=== PATIENT | male | born 1970 | race Hispanic/Latino ===

== ENCOUNTER 2019-11-14 22:34 | Emergency (ER) | payer SELFPAY ==
[2019-11-14] MEDS ORDERED: ACETAMINOPHEN EXTRA STRENGTH 500 MG TABLET ONE (22:45)
[2019-11-14] MEDS ORDERED: AMOXICILLIN 500 MG CAPSULE PO ONE (22:46)
== END 2019-11-14 23:19 | disposition home or self-care (01) ==
LOC: EDH 22:34
DX: K04.7 Periapical abscess without sinus (principal); L03.211 Cellulitis of face; E11.9 Type 2 diabetes mellitus without complications

== ENCOUNTER 2024-09-12 19:03 | Emergency (ER) | payer BC ==
[~2024-09-12] VITALS: Ht 175.3 cm; Wt 97.1 kg
--- NOTE | 2024-09-12 19:38 | ERN ---
General Stated Complaint: SENT BY DR Rivera Seen by MD: 19:07 Source: patient, family History of Present Illness Initial Comments 54-year-old male coming in to be evaluated for cough and shortness of breath. Per patient he was seen by his PCP and sent over for further evaluation. Patient states that these symptoms have been ongoing for one week. Along with the cough and congestion he states that he has been having fever and chills Allergies: Coded Allergies: No Known Drug Allergies (Verified Allergy, Unknown, 11/08/19) ROS Dictation CONSTITUTIONAL: No chills, no fever, no weakness, no diaphoresis, no malaise. HEAD/FACE: No signs of trauma. EENT: No eye pain, no blurred vision, no tearing, no double vision, no ear pain, no ear discharge, no nose pain, no nasal congestion, no throat pain, no throat swelling, no mouth pain. RESPIRATORY: cough, no orthopnea, SOB, no stridor, no wheezing. CARDIOVASCULAR: No chest pain, no edema, no palpitations, no syncope. GASTROINTESTINAL/ABDOMINAL: No abdominal pain, no constipation, no diarrhea, no nausea, no vomiting. GENITOURINARY: No abnormal discharge, no dysuria, no frequent urination, no hematuria. No complaints of pain in the genitals. MUSCULOSKELETAL: No back pain, no gout, no joint pain, no joint swelling, no muscle pain, no muscle stiffness, no neck pain. INTEGUMENTARY: No change in color, no change in hair/nails, no dryness, no lesion, no lumps, no rash. NEUROLOGICAL/PSYCH: No anxiety, not depressed, no emotional problem, no headache, no numbness, no pre-existing deficit, no history of seizures, no tremors, no weakness. HEMATOLOGIC/LYMPHATIC: Not anemic, no history of blood clots, no apparent bleeding, no bruising, glands not swollen. All Systems Negative, Except as Noted. Physical Exam Physical Exam Dictation VITAL SIGNS: Reviewed. GENERAL APPEARANCE: Alert, oriented x3, no acute distress, obese. HEAD AND FACE: Non-traumatic. EYES: PERRL, pink conjunctivas, eyelid no trauma, anterior chamber clear. EARS: Pinnas intact and no signs of trauma or erythema. Ear canals clear and no discharge. TMs no erythema. NOSE: No discharge, no bleeding. OROPHARYNX: Mouth normal, teeth no caries, tongue pink. Pharynx clear, no erythema. Tonsils no exudates, no abscesses noted. Mucous membrane moist. NECK: Supple, non-tender, no thyromegaly, no masses, no JVD, no bruits. BREAST: Deferred. CHEST: No tenderness, no crepitus, no paradoxical movement, no retractions. LUNGS: Clear, well-ventilated, symmetric, rales, no wheezing, rhonchi, stridor, good breath sounds bilaterally. HEART: Regular rate, regular rhythm, no murmur, no gallops. VASCULAR: No peripheral edema. ABDOMEN: Soft, positive bowel sounds, nondistended, no guarding, nontender, no rebound, no masses no hepatomegaly, no splenomegaly, no Glez's sign, no hernias. RECTAL: Deferred. GENITAL: Deferred. NEUROLOGICAL: Normal speech, gross motor function intact, gross sensory function intact. MUSCULOSKELETAL: Neck nontender, full range of motion, back nontender, full range of motion. EXTREMITIES: Nontender, full range of motion. SKIN: Color pink, dry, no turgor, no rash, no lacerations, no abrasions, no contusions. LYMPHATICS: Deferred. Results Laboratory and Microbiology Lab and Micro Result Laboratory Tests Test 09/12/24 20:09 09/12/24 20:25 White Blood Count 10.6 K/uL (4.8-10.8) Red Blood Count 5.66 MIL/uL (4.50-6.20) Hemoglobin 16.0 g/dL (14.0-18.0) Hematocrit 46.8 % (42-54) Mean Corpuscular Volume 82.7 fL (79-99) Mean Corpuscular Hemoglobin 28.3 pg (27.0-33.0) Mean Corpuscular Hemoglobin Concent 34.2 g/dL (32.0-36.0) Red Cell Distribution Width 13.6 % (11.0-15.5) Platelet Count 216 K/uL (130-400) Mean Platelet Volume 9.4 fL (7.5-10.5) Immature Granulocyte % (Auto) 0.5 % (0-1) Neutrophils (%) (Auto) 77.2 % (40.0-77.0) H Lymphocytes (%) (Auto) 5.6 % (21.0-51.0) L Monocytes (%) (Auto) 15.2 % (3.0-13.0) H Eosinophils (%) (Auto) 0.8 % (0.0-8.0) Basophils (%) (Auto) 0.7 % (0.0-5.0) Neutrophils # (Auto) 8.2 K/uL (1.8-7.7) H Lymphocytes # (Auto) 0.6 K/uL (1.0-4.8) L Monocytes # (Auto) 1.6 K/uL (0.1-1.0) H Eosinophils # (Auto) 0.08 K/uL (0.00-0.70) Basophils # (Auto) 0.07 K/uL (0.00-0.20) Absolute Immature Granulocyte (auto 0.05 K/uL (0-1) Nucleated Red Blood Cells 0.0 % (0.0-0.19) White Cell Morphology Comment See comments Sodium Level 133 mmol/L (136-145) L Potassium Level 4.2 mmol/L (3.5-5.1) Chloride Level 98 mmol/L (101-111) L Carbon Dioxide Level 28 mmol/L (21-32) Blood Urea Nitrogen 15 mg/dL (7-18) Creatinine 0.9 mg/dL (0.5-1.3) Glomerular Filtration Rate Calc 101 mL/min (>90) Random Glucose 103 mg/dL (70-105) Lactic Acid Level 2.4 mmol/L (0.8-2.5) Total Calcium 9.1 mg/dL (8.5-10.1) Total Creatine Kinase 97 U/L (21-232) Troponin I High Sensitivity 7 ng/L (4-75) B-Type Natriuretic Peptide 65 pg/mL (0-100) Influenza Type A Antigen Positive For Type A Influenza Type B Antigen Negative For Type B SARS-CoV-2, RNA, NAAT NEGATIVE SARS CoV-2 Group A Streptococcus Rapid negative (NEGATIVE) Labs Reviewed?: Yes EKG/XRAY/US/CT/MRI X-RAY Comment Chest x-ray-NAD [facility] MDM: Differential diagnosis: Cough, congestion, URI, influenza, COVID Patient is a 54-year-old male coming in to be evaluated for cough and congestion. Per patient he was sent by PCP to rule out an ammonia. Laboratory workup negative for acute findings influenza a is only positive findings. Patient will be discharged in stable condition with a diagnosis of influenza a patient will be discharged with Tamiflu and medication for symptomatic relief. ED Course Orders Procedure Category Date Status Time Cbc With Differential LAB 09/12/24 Complete 19:30 Blood Cult LUKE 09/12/24 In Process 19:30 Urinalysis Profile LAB 09/12/24 Logged 19:30 Culture Urine LUKE 09/12/24 Logged 19:30 Creatine Kinase, Total LAB 09/12/24 Complete 19:30 Troponin I High LAB 09/12/24 Complete Sensitivity 19:30 Lactic Acid LAB 09/12/24 Complete 19:30 Basic Metabolic Panel LAB 09/12/24 Complete 19:30 B-Type Natriuretic LAB 09/12/24 Complete Peptide 19:30 Chest 1vw RAD 09/12/24 Taken 19:30 Methylprednisolone PHA 09/12/24 Complete Succ 125mg (Solu-Medr 19:30 Ipratropium/Albuterol PHA 09/12/24 Complete Neb (Duoneb) 19:30 Ceftriaxone 1g Vial PHA 09/12/24 Complete (Rocephine 1g Inj) 19:30 Azithromycin 500mg+Ns PHA 09/12/24 Complete 250ml (Azithromyci 19:30 Arterial Blood Gas + RT 09/12/24 Transmitted 19:33 Acetaminophen 500mg PHA 09/12/24 Complete Tab (Tylenol 500mg T 20:30 Rapid (Group A Strep) LAB 09/12/24 Complete 20:35 Influenza Type A & B, LAB 09/12/24 Complete Rapid 20:35 Covid Rna Naat LAB 09/12/24 Complete 20:35 Current Medications Medications (Trade) Dose Ordered Sig/Gabrielle Route PRN Reason Start Time Stop Time Status Last Admin Dose Admin Acetaminophen (TYLenol 500MG TAB) 1,000 mg ONCE ONCE PO 09/12/24 20:30 09/12/24 20:31 DC 09/12/24 20:36 Albuterol (DUOneb) 2 udvial ONCE ONCE IH 09/12/24 19:30 09/12/24 19:34 DC 09/12/24 20:40 Azithromycin 250 ml @ 250 mls/hr Q24H STAT IVPB 09/12/24 19:30 09/12/24 20:29 DC 09/12/24 20:12 Ceftriaxone Sodium (ROCEphine 1G INJ) 1 gm ONCE ONCE IVPB 09/12/24 19:30 09/12/24 19:34 DC 09/12/24 20:12 Methylprednisolone Sodium Succinate (Solu-medROL 125MG) 125 mg ONCE ONCE IVP 09/12/24 19:30 09/12/24 19:34 DC 09/12/24 20:13 Vital Signs Date Time Temp Pulse Resp B/P (MAP) Pulse Ox O2 Delivery O2 Flow Rate FiO2 09/12/24 21:18 102.0 120 20 148/80 97 Room Air* 0 21 09/12/24 20:40 107 18 09/12/24 20:36 102.0 09/12/24 19:54 102.4 113 20 149/90 98 Room Air DX & DISP Disposition: Discharge Departure Impression: Primary Impression: Influenza A Condition: Stable Scripts Loratadine (Loratadine) 10 Mg Tablet 1 TAB PO DAILY for allergy symptoms for 30 Days, #30 TAB 0 Refills Prov: CHRISTIANNE MUÑOZ MD 09/12/24 Prednisone (Prednisone) 5 Mg Tablet 1 TAB PO DAILY for 7 Days, #7 TAB 0 Refills Prov: CHRISTIANNE MUÑOZ MD 09/12/24 Oseltamivir Phosphate (Tamiflu) 75 Mg Cap 1 CAP PO BID for 5 Days, #10 CAP 0 Refills Prov: CHRISTIANNE MUÑOZ MD 09/12/24 Additional Instructions: FOLLOW-UP WITH PRIMARY CARE PROVIDER IN 1 TO 2 DAYS. TAKE MEDICATIONS DIRECTED HERE IN THE EMERGENCY ROOM. OKAY TO CONTINUE HOME MEDICATIONS UNLESS OTHERWISE DISCUSSED DURING YOUR VISIT IN THE EMERGENCY ROOM TODAY. RETURN TO YOUR NEAREST EMERGENCY ROOM IF SYMPTOMS WORSEN OR IF THERE IS NO IMPROVEMENT. CALL 911 IF YOU NEED IMMEDIATE ASSISTANCE. TAKE TYLENOL [id number] NEEDED AND IF NO CONTRAINDICATIONS ARE PRESENT. INCREASE ORAL HYDRATION. A WOUND CULTURE OR URINE CULTURE WAS ORDERED HERE IN THE EMERGENCY ROOM DEPARTMENT PLEASE FOLLOW-UP WITH PRIMARY CARE PROVIDER AND ADVISE THEM TO GET REPEAT PORTS FROM OUR FACILITY. IF YOU HAD ANY BULL WRAP/SPLINTS THAT WERE APPLIED HERE, PLEASE DO NOT REMOVE THEM UNTIL YOU SEE YOUR PRIMARY CARE OR SPECIALTY. Referrals: Referrals: JOSE SINGH MD (PCP) Time of Disposition: 22:29 CHRISTIANNE MUÑOZ MD Sep 12, 2024 19:38
--- NOTE | 2024-09-12 19:55 | NUR ---
SEPSIS ALERT CALLED OVERHEAD FOR HWD3; PT WITH TEMP OF 102.4 AND PULSE OF 113
[2024-09-12] MEDS: AZITHROMYCIN 500MG+NS 250ML 250 ML IVPB STA (20:12)
[2024-09-12] MEDS: cefTRIAXone 1G VIAL IVPB ONE (20:12)
[2024-09-12] MEDS: Solu-medROL 125MG VIAL IVP ONE (20:13)
--- NOTE | 2024-09-12 20:15 | NUR ---
ASSUMED PT CARE
[2024-09-12 20:22] LABS: BASOPHILS # (AUTO) 0.07 K/uL (0.00-0.20); BASOPHILS % (AUTO) 0.7 % (0.0-5.0); EOSINOPHILS # (AUTO) 0.08 K/uL (0.00-0.70); EOSINOPHILS % (AUTO) 0.8 % (0.0-8.0); HEMATOCRIT 46.8 % (42-54); IMMATURE GRANULOCYTE ABSOLUTE 0.05 K/uL (0-1); LYMPHOCYTES # (AUTO) 0.6 K/uL (1.0-4.8); LYMPHOCYTES % (AUTO) 5.6 % (21.0-51.0); MEAN CORPUSCULAR HEMOGLOBIN 28.3 pg (27.0-33.0); MEAN CORPUSCULAR HGB CONC 34.2 g/dL (32.0-36.0); MEAN CORPUSCULAR VOLUME 82.7 fL (79-99); MONOCYTES # (AUTO) 1.6 K/uL (0.1-1.0); MONOCYTES % (AUTO) 15.2 % (3.0-13.0); NEUTROPHILS # (AUTO) 8.2 K/uL (1.8-7.7); NEUTROPHILS % (AUTO) 77.2 % (40.0-77.0); PLATELET COUNT (AUTO) 216 K/uL (130-400); RED BLOOD CELL COUNT(AUTO) 5.66 MIL/uL (4.50-6.20); RED CELL DISTRIBUTION WIDTH 13.6 % (11.0-15.5); WHITE BLOOD COUNT (AUTO) 10.6 K/uL (4.8-10.8)
[2024-09-12 20:26] LABS: CREATININE 0.9 mg/dL (0.5-1.3); POTASSIUM 4.2 mmol/L (3.5-5.1)
[2024-09-12] MEDS: acetaMINOPHEN 500 MG TABLET PO ONE (20:36)
[2024-09-12 20:40] VITALS: PULSE 107; RESP 18
[2024-09-12] MEDS: IpraTROPium/alBUTERol SULFATE 3 ML SOLUTION IH ONE (20:40)
[2024-09-12 20:46] LABS: B-TYPE NATRIURETIC PEPTIDE 65 pg/mL (0-100)
[2024-09-12 20:52] LABS: RAPID GROUP A STREP negative (NEGATIVE)
[2024-09-12 20:54] LABS: SARS-CoV-2, RNA, NAAT NEGATIVE SARS CoV-2 (NEGATIVE)
[2024-09-12 21:02] LABS: INFLUENZA TYPE B Negative For Type B (NEGATIVE)
[2024-09-12 21:05] LABS: INFLUENZA TYPE A Positive For Type A (NEGATIVE)
[2024-09-12 21:40] VITALS: TEMP 100
[2024-09-12] MEDS ORDERED: LORA10TA7 PO (22:31)
[2024-09-12] MEDS ORDERED: PRED5TAB PO (22:31)
[2024-09-12] MEDS ORDERED: OSEL75 PO (22:31)
[2024-09-12 23:05] VITALS: BP 135/65; PULSE 105; RESP 20; TEMP 100; O2SAT 98
--- NOTE | 2024-09-13 08:26 | HMCIMG ---
CHEST 1VW REASON: cough COMPARISON: None. FINDINGS: Single view of the chest was obtained. Lungs are clear. Heart size is normal. There is no pulmonary vascular congestion. Mediastinum and bony thorax appear unremarkable. IMPRESSION: 1. Normal single view chest x-ray.
== END 2024-09-12 23:06 | disposition home or self-care (01) ==
LOC: EDH 19:03
DX: J10.1 Influenza due to other identified influenza virus with other respiratory manifestations (principal); Z20.822 Contact with and (suspected) exposure to COVID-19
CPT/HCPCS: 99284; 96365; 71045; 87635; 96375; 82550; 84484; 80048; 83880; 85025; 87040 ×2; 87880; 87804 ×2; 83605; 36415; 96368; 94640; J2919; J0696; J0456

== ENCOUNTER 2024-10-05 22:01 | Emergency (ER) | payer BC ==
[~2024-10-05] VITALS: Ht 170.2 cm; Wt 94.8 kg
[~2024-10-05 22:01] MED LIST: LORA10TA7 PO; OSEL75 PO; PRED5TAB PO
--- NOTE | 2024-10-05 22:29 | ERN ---
General Chief Complaint: Shortness of Breath Stated Complaint: SHORTNESS OF BREATH Time Seen by MD: 22:05 History of Present Illness Initial Comments 54-year-old male, 30+ pack year smoking history, diabetes, presents for dyspnea. Patient reports that he was in his normal state of health throughout the day today. He was able to go to work. He took a nap, and upon awakening he says that he could not catch his breath. He was trying to take deep respiration rate but was unable to take a deep respiration. He denies any chest pain. Denies any swelling. Denies any cough or congestion. Denies any recent viral URI type illnesses. He denies any dizziness or syncopal episodes. He reports that he has never felt this before. He reports that he was initially very winded upon awakening, but his symptoms are subsiding. Allergies: Coded Allergies: No Known Drug Allergies (Verified Allergy, Unknown, 11/08/19) Home Meds Active Scripts Prednisone (Prednisone) 20 Mg Tablet, 1 TAB PO BID for 5 Days, #10 TAB 0 Refills Prov:KATHERINE ZAMORANO DO 10/06/24 Albuterol Sulfate (Ventolin Hfa/Proventil Hfa/Proair Hfa) 90 Mcg Puff, 2 PUFF IH Q4HPRN PRN for wheezing for 30 Days, #18 GM 0 Refills Prov:KATHERINE ZAMORANO DO 10/06/24 Loratadine (Loratadine) 10 Mg Tablet, 1 TAB PO DAILY for allergy symptoms for 30 Days, #30 TAB 0 Refills Prov:CHRISTIANNE MUÑOZ MD 09/12/24 Prednisone (Prednisone) 5 Mg Tablet, 1 TAB PO DAILY for 7 Days, #7 TAB 0 Refills Prov:CHRISTIANNE MUÑOZ MD 09/12/24 Oseltamivir Phosphate (Tamiflu) 75 Mg Cap, 1 CAP PO BID for 5 Days, #10 CAP 0 Refills Prov:CHRISTIANNE MUÑOZ MD 09/12/24 Past Medical History Past Medical History: Diabetes-Type II, Other Medical History Other: SLEEP APNEA Past Surgical History: None ROS Dictation CONSTITUTIONAL: No chills, no fever, no weakness, no diaphoresis, no malaise. HEAD/FACE: No signs of trauma. EENT: No eye pain, no blurred vision, no tearing, no double vision, no ear pain, no ear discharge, no nose pain, no nasal congestion, no throat pain, no throat swelling, no mouth pain. RESPIRATORY: Dyspnea CARDIOVASCULAR: No chest pain, no edema, no palpitations, no syncope. GASTROINTESTINAL/ABDOMINAL: No abdominal pain, no constipation, no diarrhea, n o nausea, no vomiting. GENITOURINARY: No abnormal discharge, no dysuria, no frequent urination, no hematuria. No complaints of pain in the genitals. MUSCULOSKELETAL: No back pain, no gout, no joint pain, no joint swelling, no muscle pain, no muscle stiffness, no neck pain. INTEGUMENTARY: No change in color, no change in hair/nails, no dryness, no lesion, no lumps, no rash. NEUROLOGICAL/PSYCH: No anxiety, not depressed, no emotional problem, no headache, no numbness, no pre-existing deficit, no history of seizures, no tremors, no weakness. HEMATOLOGIC/LYMPHATIC: Not anemic, no history of blood clots, no apparent bleeding, no bruising, glands not swollen. All Systems Negative, Except as Noted. Physical Exam Physical Exam Dictation VITAL SIGNS: Reviewed. GENERAL APPEARANCE: Alert, oriented x3, no acute distress, obese. HEAD AND FACE: Non-traumatic. EYES: PERRL, pink conjunctivas, eyelid no trauma, anterior chamber clear. EARS: Pinnas intact and no signs of trauma or erythema. Ear canals clear and no discharge. TMs no erythema. NOSE: No discharge, no bleeding. OROPHARYNX: Mouth normal, teeth no caries, tongue pink. Pharynx clear, no erythema. Tonsils no exudates, no abscesses noted. Mucous membrane moist. NECK: Supple, non-tender, no thyromegaly, no masses, no JVD, no bruits. BREAST: Deferred. CHEST: No tenderness, no crepitus, no paradoxical movement, no retractions. LUNGS: Clear, well-ventilated, symmetric, no rales, no wheezing, no rhonchi, no stridor, good breath sounds bilaterally. HEART: Regular rate, regular rhythm, no murmur, no gallops. VASCULAR: No peripheral edema. ABDOMEN: Soft, positive bowel sounds, nondistended, no guarding, nontender, no rebound, no masses no hepatomegaly, no splenomegaly, no Glez's sign, no hernias. RECTAL: Deferred. GENITAL: Deferred. NEUROLOGICAL: Normal speech, gross motor function intact, gross sensory function intact. MUSCULOSKELETAL: Neck nontender, full range of motion, back nontender, full range of motion. EXTREMITIES: Nontender, full range of motion. SKIN: Color pink, dry, no turgor, no rash, no lacerations, no abrasions, no contusions. LYMPHATICS: Deferred. Results Laboratory and Microbiology Lab and Micro Result Laboratory Tests Test 10/05/24 22:13 10/05/24 22:41 10/05/24 23:31 10/06/24 00:43 Influenza Type A Antigen Negative For Type A Influenza Type B Antigen Negative For Type B SARS-CoV-2 Antigen (Rapid) PRESUMPTIVE NEGATIVE White Blood Count 11.1 K/uL (4.8-10.8) H Red Blood Count 5.48 MIL/uL (4.50-6.20) Hemoglobin 15.3 g/dL (14.0-18.0) Hematocrit 45.5 % (42-54) Mean Corpuscular Volume 83.0 fL (79-99) Mean Corpuscular Hemoglobin 27.9 pg (27.0-33.0) Mean Corpuscular Hemoglobin Concent 33.6 g/dL (32.0-36.0) Red Cell Distribution Width 13.8 % (11.0-15.5) Platelet Count 259 K/uL (130-400) Mean Platelet Volume 9.8 fL (7.5-10.5) Immature Granulocyte % (Auto) 0.3 % (0-1) Neutrophils (%) (Auto) 60.0 % (40.0-77.0) Lymphocytes (%) (Auto) 29.3 % (21.0-51.0) Monocytes (%) (Auto) 7.5 % (3.0-13.0) Eosinophils (%) (Auto) 2.4 % (0.0-8.0) Basophils (%) (Auto) 0.5 % (0.0-5.0) Neutrophils # (Auto) 6.6 K/uL (1.8-7.7) Lymphocytes # (Auto) 3.2 K/uL (1.0-4.8) Monocytes # (Auto) 0.8 K/uL (0.1-1.0) Eosinophils # (Auto) 0.27 K/uL (0.00-0.70) Basophils # (Auto) 0.06 K/uL (0.00-0.20) Absolute Immature Granulocyte (auto 0.03 K/uL (0-1) Nucleated Red Blood Cells 0.0 % (0.0-0.19) D-Dimer Quantitative (PE/DVT) 503 ng/mL (0-500) *H Sodium Level 138 mmol/L (136-145) Potassium Level 4.3 mmol/L (3.5-5.1) Chloride Level 102 mmol/L (101-111) Carbon Dioxide Level 29 mmol/L (21-32) Blood Urea Nitrogen 14 mg/dL (7-18) Creatinine 0.8 mg/dL (0.5-1.3) Glomerular Filtration Rate Calc 105 mL/min (>90) Random Glucose 114 mg/dL (70-105) H Total Calcium 8.7 mg/dL (8.5-10.1) Total Creatine Kinase 100 U/L (21-232) Troponin I High Sensitivity 5.7 ng/L (4-75) 7 ng/L (4-75) B-Type Natriuretic Peptide 9 pg/mL (0-100) Blood Gas Specimen Type Arterial Arterial Blood pH 7.406 (7.350-7.450) Arterial Blood Partial Pressure CO2 41 mmHg (35-48) Arterial Blood Partial Pressure O2 62.1 mmHg (83.0-108.0) L Arterial Blood HCO3 25.2 mmol/L (21.0-28.0) Arterial Blood Oxygen Saturation 92.0 % (94.0-98.0) L Arterial Blood Base Excess 0.5 mmol/L (-2.0-3.0) Blood Gas Temperature 37.0 CELSIUS (35.5-37.0) Blood Gas Vent Mode ROOMAIR (ROOM AIR) FiO2 21.0 % Blood Gas Specimen Comment RB EVON MDM CC: Dyspnea upon awakening just prior to arrival Historian: Patient Comorbidities: Obesity, 30+ pack year smoking history, diabetes, sleep apnea Limitations by social determinants of health: None Differential diagnosis: ACS, PE, emphysema /COPD, asthma, pneumonia, other. EKG (independently ordered and interpreted by me): Normal sinus rhythm, tachycardia, rate of 102, normal axis, good R-wave progression, intervals are stable. Labs (independently interpreted by me): CBC normal, BMP stable, CK normal, troponin x 2 normal, BNP normal. D-dimer elevated. ABG (interpreted by me): PaO2 62, otherwise stable. CTA chest PE protocol (independently interpreted by me): normal lung kennedy, no obvious PE. CXR (independently interpreted by me): no cardiomegally, no effusions, no focal infiltrates. Treatment in ED: solumedrol IV, nebulized atrovent & albuterol The patient has a stable oxygen saturation in the entire time in the ER. While he fell asleep, he was getting in the ABG, Which I think lead to the hypoxia. He likely has sleep apnea. While awake the patient always had an oxygen saturation over 95% while on room air. after the nebulized treatments, I re- evaluated the patient and he has a little bit more wheezing than prior. I suspect he was very clamped down initially. He was symptoms are more consistent with COPD/emphysema, he has never been diagnosed with this but this is likely what is causing your symptoms based on his extensive smoking history. I did consider admission for the patient, but since the patient was stable oxygen saturation no respiratory distress and he feels much improved after nebulizer treatments, we will discharge with a prescription for albuterol inhaler, a course of steroids, and follow up with the PCP. He reports that he was very good follow up with his PCP and he prefers to be worked up as an outpatient. ED Course Orders Procedure Category Date Status Time Arterial Blood Gas RT 10/05/24 Transmitted 22:06 Cbc With Differential LAB 10/05/24 Complete 22:06 B-Type Natriuretic LAB 10/05/24 Complete Peptide 22:06 Cardiac Panel LAB 10/05/24 Complete 22:06 Chest 1vw RAD 10/05/24 Taken 22:06 12 Lead Ekg Tracing- EKG 10/05/24 Logged Technical 22:06 Basic Metabolic Panel LAB 10/05/24 Complete 22:06 Covid19 (Sars Antigen LAB 10/05/24 Complete Rapid) 22:06 Influenza Type A & B, LAB 10/05/24 Complete Rapid 22:06 D-Dimer LAB 10/05/24 Complete 22:06 Albuterol 0.083% PHA 10/05/24 Complete 2.5mg/3ml (Proventil 22:30 Ipratropium 0.5 PHA 10/05/24 Complete Mg/2.5 Ml Inh 22:30 Methylprednisolone PHA 10/05/24 Complete Succ 40mg (Solu-Medro 22:30 Troponin I High LAB 10/05/24 Complete Sensitivity 23:31 Ct Chest Pe Protocol CT 10/05/24 Resulted Wwo Cont 23:40 Iohexol (Omnipaque) PHA 10/06/24 Complete 00:25 Arterial Blood Gas LAB 10/06/24 Complete 00:43 Current Medications Medications (Trade) Dose Ordered Sig/Gabrielle Route PRN Reason Start Time Stop Time Status Last Admin Dose Admin Albuterol Sulfate (Proventil 0.083% 2.5mg/3ml) 2.5MG ONCE ONCE IH 10/05/24 22:30 10/05/24 22:31 DC 10/06/24 00:27 Iohexol (Omnipaque) 75 ml STK-MED ONCE IV 10/06/24 00:25 10/06/24 00:25 DC Ipratropium [place] (AtrovENT UD) 0.5 MG ONCE ONCE IH 10/05/24 22:30 10/05/24 22:31 DC 10/06/24 00:27 Methylprednisolone Sodium Succinate (Solu-medROL 40MG) 40 mg ONCE ONCE IVP 10/05/24 22:30 10/05/24 22:31 DC 10/05/24 22:32 Vital Signs Date Time Temp Pulse Resp B/P (MAP) Pulse Ox O2 Delivery O2 Flow Rate FiO2 10/06/24 01:40 98.8 101 18 135/65 97 Room Air* 0 21 10/06/24 00:27 91 22 10/05/24 22:03 98.4 100 18 148/90 97 Room Air 0 DX & DISP Disposition: Discharge Departure Impression: Primary Impression: Wheezing Condition: Stable Scripts Prednisone (Prednisone) 20 Mg Tablet 1 TAB PO BID for 5 Days, #10 TAB 0 Refills Prov: KATHERINE ZAMORANO DO 10/06/24 Albuterol Sulfate (Ventolin Hfa/Proventil Hfa/Proair Hfa) 90 Mcg Puff 2 PUFF IH Q4HPRN PRN for wheezing for 30 Days, #18 GM 0 Refills Prov: KATHERINE ZAMORANO DO 10/06/24 Additional Instructions: There are no dangerous findings on your workup here today. As we discussed, your symptoms are most consistent with lung disease, possibly early emphysema. Your oxygen level was mildly low on arrival but improved after treatment. Your other vital signs are stable. Your cardiac workup is unremarkable including your EKG, chest x-ray, troponin, and BNP. The rest of your lab work is unremarkable (CBC, BMP). The CT scan of your chest shows no signs of blood clots or lung abnormalities or cardiac abnormalities. You received steroids and albuterol (nebulized) here in the ER. I have prescribed an albuterol inhaler. You can take two puffs every 3-4 hours as needed for respiratory distress. I have prescribed prednisone, which is an anti-inflammatory steroid. Take this twice per day for the next 3-5 days depending on your symptoms. If you are feeling better after three days, you did not need to complete the entire course of medication. As we discussed, I recommend that you follow up with your primary doctor because you may need further studies. Please return to the emergency department if you have any concerns. Referrals: ERINN VAZQUEZ (PCP) KATHERINE ZAMORANO DO Oct 05, 2024 22:29
[2024-10-05] MEDS: Solu-medROL 40MG VIAL IVP ONE (22:32)
[2024-10-05 23:01] LABS: BASOPHILS # (AUTO) 0.06 K/uL (0.00-0.20); BASOPHILS % (AUTO) 0.5 % (0.0-5.0); EOSINOPHILS # (AUTO) 0.27 K/uL (0.00-0.70); EOSINOPHILS % (AUTO) 2.4 % (0.0-8.0); HEMATOCRIT 45.5 % (42-54); IMMATURE GRANULOCYTE ABSOLUTE 0.03 K/uL (0-1); LYMPHOCYTES # (AUTO) 3.2 K/uL (1.0-4.8); LYMPHOCYTES % (AUTO) 29.3 % (21.0-51.0); MEAN CORPUSCULAR HEMOGLOBIN 27.9 pg (27.0-33.0); MEAN CORPUSCULAR HGB CONC 33.6 g/dL (32.0-36.0); MONOCYTES # (AUTO) 0.8 K/uL (0.1-1.0); MONOCYTES % (AUTO) 7.5 % (3.0-13.0); NEUTROPHILS # (AUTO) 6.6 K/uL (1.8-7.7); PLATELET COUNT (AUTO) 259 K/uL (130-400); RED BLOOD CELL COUNT(AUTO) 5.48 MIL/uL (4.50-6.20); RED CELL DISTRIBUTION WIDTH 13.8 % (11.0-15.5); WHITE BLOOD COUNT (AUTO) 11.1 K/uL (4.8-10.8)
[2024-10-05 23:08] LABS: CREATININE 0.8 mg/dL (0.5-1.3); POTASSIUM 4.3 mmol/L (3.5-5.1)
[2024-10-05 23:16] LABS: INFLUENZA TYPE A Negative For Type A (NEGATIVE); INFLUENZA TYPE B Negative For Type B (NEGATIVE)
[2024-10-05 23:28] LABS: B-TYPE NATRIURETIC PEPTIDE 9 pg/mL (0-100)
[2024-10-06] LABS: COVID19 (SARS ANTIGEN RAPID) PRESUMPTIVE NEGATIVE (NEGATIVE)
[2024-10-06] MEDS ORDERED: IOHEXOL-350 75 ML VIAL IV ONE (00:25)
[2024-10-06 00:27] VITALS: PULSE 91; RESP 22
[2024-10-06] MEDS: IpraTROPium 0.5 MG/2.5 ML INH IH ONE (00:27)
[2024-10-06] MEDS: ALBUTEROL 0.083% 2.5 MG/3 ML INH IH ONE (00:27)
[2024-10-06 00:45] LABS: ABG BASE EXCESS 0.5 mmol/L (-2.0-3.0); ABG HCO3 25.2 mmol/L (21.0-28.0); ABG PCO2 41 mmHg (35-48); ABG PH 7.406 (7.350-7.450); PO2, ARTERIAL BG 62.1 mmHg (83.0-108.0); VENT MODE, BG ROOMAIR (ROOM AIR)
[2024-10-06] MEDS ORDERED: ALBUHFA IH (01:25)
[2024-10-06] MEDS ORDERED: PRED20TA3 PO (01:25)
[2024-10-06 01:40] VITALS: BP 135/65; PULSE 101; RESP 18; TEMP 98.7; O2SAT 97
--- NOTE | 2024-10-06 01:41 | HMCIMG ---
CT CHEST PE PROTOCOL WWO CONT HISTORY: No additional history given. COMPARISON: None TECHNIQUE: CT angiography of the chest was performed. The study was performed using angiographic technique with maximum intensity projection reconstruction images. Patient was given 75 cc of Omnipaque through intravenous route. FINDINGS: The study is limited due to poor contrast opacification. Fatty changes of the liver are noted. Gastric distention is seen. Mild small bowel dilatation is seen. A small hiatal hernia is seen. No CT evidence of filling defect is seen to suggest pulmonary embolus. No CT evidence of aortic dissection is seen. No evidence of parenchymal disease is seen. No CT evidence of pleural effusion or pericardial effusion is seen. The heart is enlarged. No evidence of adrenal mass is seen. Degenerative changes of the spine are noted. IMPRESSION: 1. No CT evidence of acute pulmonary embolus is seen. CT was performed with one or more following dose reduction techniques: automated exposure control, adjustment of the mA and kv according to patient's size, or use of a iterative reconstruction technique.
--- NOTE | 2024-10-06 07:41 | EKG ---
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
--- NOTE | 2024-10-06 08:49 | HMCIMG ---
CHEST 1VW REASON: Dyspnea/SOB COMPARISON: 09/12/2024. FINDINGS: Single view of the chest was obtained. Lungs are clear. Heart size is normal. There is no pulmonary vascular congestion. Mediastinum and bony thorax appear unremarkable. IMPRESSION: 1. Normal single view chest x-ray.
== END 2024-10-06 01:47 | disposition home or self-care (01) ==
LOC: EDH 22:01
DX: R06.2 Wheezing (principal); E11.9 Type 2 diabetes mellitus without complications; E66.9 Obesity, unspecified; Z79.52 Long term (current) use of systemic steroids; Z68.32 Body mass index [BMI] 32.0-32.9, adult; Z79.899 Other long term (current) drug therapy
CPT/HCPCS: 99284; 96374; 71270; 71045; 87426; 82550; 84484 ×2; 80048; 82803; 83880; 85025; 85378; 87804 ×2; 36415; 93005; 36600; 94640; J2919; Q9967